=== PATIENT | male | born 1985 ===

== ENCOUNTER 2024-12-08 12:33 | Outpatient (AMB) | payer BC, SELFPAY ==
[2024-12-08 12:36] VITALS: BP 102/66; PULSE 107; RESP 14; TEMP 36.8; O2SAT 98; BMI 22.5
--- NOTE | 2024-12-08 12:36 | A.OFFPC_ITS ---
Vital Signs 12/08/24 12:36 12/08/24 13:03 Height 5 ft 3.78 in Weight 130 lb 4 oz BMI 22.5 BP 102/66 Blood Pressure Location Rt brachial Position Sitting Respiration 14 Pulse 107 H 80 Pulse Source Pulse Oximeter Auscultation Temp 98.3 F Temp Source Oral Pulse Oximetry (%) 98 Oxygen Delivery Method Room Air Intake Visit Reasons: Est. Care / Referral for Derm. Intake Note: New patient visit. 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 Allergies No Known Allergies Allergy (Verified 12/08/24 12:39) Medication List - Last Reconciled 12/08/24 by SHAMEKA Hunter No Known Home Meds Tobacco use date assessed: 05/23/21 Dental Screening Dental Screen Date: 12/08/24 Did you have a dental visit in the last 12 months?: Yes Did you have a dental problem in the last 6 months where you did not have access to dental care?: No Was dental information given to patient?: Patient has dentist HPI HPI Comments History of Present Illness Details 39 Year old male with a family history o f early PR, current smoker SurgHx: None FHx: Mom: Breast Cancer age 40, stroke. Father: PR age 50 SocHx: Smokes 1.5 ppd since 2007. EtOH infreq. 3x per month 1-2 per session. MJ daily. No other drugs. 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 - He has had moles checked historically, and prior biopsies have not returned positive for cancer. - His last mole removal occurred when he was without insurance coverage. Tobacco use disorder: - The patient is a current smoker and is not ready to quit at this time. - He is familiar with Chantix from a col league's experience but is concerned about potential side effects. - He declined a trial of Wellbutrin. Health Maintenance: - The patient is establishing care and w as previously seen by Dr. Woodard. records rec'd and reviewed. - He believes he had a tetanus shot appr oximately 10 years ago. - Screenings for anxiety and depression were positive, though the patient attributes these symptoms to normal life stressors and feels he is managing well. Past Medical History - Neoplasm of uncertain behavior of skin - History of numerous moles - No known drug allergies Past Surgical History - Patient denies any history of surgery. Family History - Mother: History of breast cancer and s troke. - Father: History of myocardial infarcti on. - Great uncle: History of cancer. - General: Reports that most of the fami ly history is heart-related. Social History - Tobacco Use: Patient is a current smok er and is not ready to quit. 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 - Family status: He has three children a nd a who is a [id number] mother. - Stressors: Notes stress related to his job and finances but feels he is coping adequately. Health Maintenance - Ordered baseline labs including a lipi d panel, metabolic panel, and PSA for prostate cancer screening. - Patient will have labs drawn today and will be notified of results via the patient portal or by mail. - Discussed the status of his tetanus im munization, which is likely due. - Recommended annual follow-up visits to maintain continuity of care. - Acknowledged positive screenings for a nxiety and depression but will monitor as the patient declined intervention. Review of Systems - Dermatologic: Reports a history of num erous moles. - HEENT: Denies problems with hearing. - Genitourinary: Reports normal urinatio n. - Gastrointestinal: Reports normal bowel movements. - All other systems reviewed and are neg ative. Physical Exam General: Well developed, well nourished, in no acute distress. Appears stated age. Head: Normocephalic, atraumatic. Eyes: Pupils are equal, round and reactive to light and accommodation. Conjunctivae are clear. Scleras nonicteric bilat. Vision grossly normal. Ears: TMs clear AU, EACS WNL Nose: Patent, without discharge. Neck: No carotid bruit bilat. Supple, no adenopathy or thyromegaly. No pain or tenderness noted. Breast: Edu on SBE Lungs: Clear to auscultation bilaterally. No rales, rhonchi or wheeze noted. Good air flow in all hernandez. Heart: Regular rate and rhythm. No murmurs, click, rubs or gallops are noted. Abdomen: Bowel sounds present in all quadrants. The abdomen is soft, nontender, with no masses or organomegaly noted. No hernias are noted. : Deferred. Reviewed KLARISSA & recommendations Pulses: Peripheral pulses are equal and palpable bilaterally. Strong pulses noted in ankles. Extremities: No clubbing, cyanosis nor edema is noted. Neurologic: Gait and station normal. Cranial Nerves 2-12 intact. Motor strength grossly symmetrical and intact. No sensory loss. Balance normal. Skin: No rashes, ulcers, or lesions noted. Turgor is good. Skin color is good. Hair and nails are without abnormalities. Psych: Normal eye contact, affect and mood appropriate, and normal interactions. Patient is alert and appropriate to context. S Results Pending Medical Decision Making The patient is a 39-year-old male establishing care, primarily requesting a dermatology referral for surveillance of numerous moles. Given his history, a referral to dermatology is appropriate for expert evaluation. In consideration of his significant family history of myocardial infarction, screening for hyperlipidemia is important. The patient, however, expressed reluctance to pursue pharmacological treatment for high cholesterol, though he agreed to prostate cancer screening. Baseline labs for general health assessment, including renal function, liver function, and a diabetes screen, have been ordered. His current tobacco use represents a significant modifiable risk factor for cardiovascular disease. Cessation options, including Wellbutrin, were discussed, but the patient is not ready to quit at this time; this will be revisited at future appointments. Although anxiety and depression screenings were positive, the patient attributes his symptoms to situational stressors and feels he is coping adequately, declining intervention for now. The plan is to establish a primary care relationship with annual follow-up visits for ongoing health maintenance and monitoring. Plan 1. Neoplasm Of Uncertain Behavior Of Ski n - A referral will be placed to [facility] for evaluation of numerous moles. - The dermatology office will contact e patient to schedule an appointment. 2. Tobacco Use Disorder - Discussed smoking cessation options, i ncluding Wellbutrin and counseling. - The patient is not ready to quit at th is time and declined pharmacotherapy. - Will continue to offer support for smo gaby cessation at future visits. Patient Instructions - A referral has been sent to [facility] ermatology in [place]. They should call you to set up an appointment. - Please stop at the front office java developer to have your blood drawn for lab tests today. - You will get an email to sign up for [employer] patient portal, which you can use to see your lab results and send messages. - If you do not sign up for the portal, we will send you a letter with your lab results. - Please let me know when you are ready to quit smoking, and we can discuss options to help you. - It is recommended to schedule a visit once a year to maintain your status as an active patient. - RTO 1 year CPE sooner prn Consent Patient was informed and verbally consented to the use of an ambient scribe for clinic note documentation during this visit. An additional 20 minutes was spent addressing the problem(s) noted at todays visit. This includes time spent before the visit reviewing the chart, time spent during the visit, and time spent after the visit on documentation reviewing laboratory results, diagnostic imaging, medications, performing a medically necessary evaluation, counseling on diagnoses, care coordination, ordering appropriate tests, ordering appropriate medications, review of tests performed by other providers, reporting test results with the patient, communication with other healthcare providers. [facility] Surgical History (Updated 12/08/24 @ 12:41 by Nisreen Valentin CMA) No pertinent past surgical history Family History (Updated 12/08/24 @ 12:40 by Nisreen Valentin CMA) Other Mental health disorder Social History (Updated 12/08/24 @ 12:38 by Kobi Wiley MA) Housing: House Alcohol intake: never Patient Tobacco Use Status: Current everyday Tobacco user Cigarette Packs Per Day: 2 Years Smoked: 17 e-Cigarette/Vaping Use: Never Used Second Hand Smoke Exposure: No service: Yes Current occupational status: employed Current occupation: Finance. Current occupational exposures/hazards: No Cognitive needs: No Hearing needs: No Vision needs: No Questionnaire PHQ-9 Over the last 2 weeks, how often have you been bothered by any of the following problems? 1. Little interest or pleasure in doing things: several days 2. Feeling down, depressed, or hopeless: several days 3. Trouble falling or staying asleep, or sleeping too much: several days 4. Feeling tired or having little energy: several days 5. Poor appetite or overeating: several days 6. Feeling bad about yourself - or that you are a failure or have let yourself or your family down: several days 7. Trouble concentrating on things, such as reading the newspaper or watching television: several days 8. Moving or speaking so slowly that other people could have noticed. Or the opposite - being so fidgety or restless that you have been moving around a lot more than usual: not at all 9. Thoughts that you would be better off or of hurting yourself in some way: not at all Total score: 7 Depression Screening Interpretation: Negative Depression Screening Done: Yes 74613 - PHQ-9 Billing: Yes Source: Developed by Drs. Eddi Araiza, Malissa Birch, Kenny Adams and colleagues, with an educational karely from [employer]. Thrive Questionnaire Date Thrive assessed: 12/01/24 I am a: Patient What is your living situation today?: I choose not to answer this question Within the past 12 months, did the food you bought not last and you didn't have the money to get more?: I choose not to answer this question Within the past 12 months, did you worry whether your food would run out before you got money to buy more?: I choose not to answer this question Do you have trouble paying for medicines?: I choose not to answer this question Do you have trouble getting transportation to medical appointments?: I choose not to answer this question Do you have trouble paying your heating and electricity bill?: I choose not to answer this question Do you have trouble taking care of your child, family member or friend?: I choose not to answer this question Do you have trouble with day-to-day activities such as bathing, preparing meals, shopping, managing finances, etc.?: I choose not to answer this question Are you currently unemployed and looking for a job?: I choose not to answer this question Are you interested in more education?: I choose not to answer this question Please select the resources that you would like help with: None Currently or been in a relationship where the following occur: No concerns reported THRIVE Score: 0 AUDIT C Alcohol Use Questionnaire (AUDIT-C) 1. How often do you have a drink containing alcohol?: Never 3. How often do you have six or more drinks on one occasion?: Never Total Score: 0 ANA LILIA-7 AMB Questionnaire ANA LILIA-7 Date ANA LILIA - 7 assessed: 12/08/24 Feeling nervous, anxious, or on edge: 1 = Several days Not being able to stop or control worryin = Several days Worrying too much about different things: 1 = Several days Trouble relaxin = Several days Being so restless that it is hard to sit still: 0 = Not at all Becoming easily annoyed or irritable: 1 = Several days Feeling afraid as if something awful might happen: 1 = Several days Total ANA LILIA-7 score (0-4 normal; 5-9 mild; 10-14 moderate; 15-21 severe): 6 Source: Developed by Drs. Eddi Araiza, Malissa Birch, Kenny Adams and colleagues, with an educational karely from [employer]. ANA LILIA-7 Assessment Billing ANA LILIA-7 Assessment Tool: ANA LILIA-7 Assessment 75255 Physical exam (Primary Care) Vital Signs: Last Vital Signs Temp 98.3 F 12/08/24 12:36 Pulse 107 H 12/08/24 12:36 Resp 14 12/08/24 12:36 BP 102/66 12/08/24 12:36 Pulse Ox 98 12/08/24 12:36 Oxygen Delivery Method Room Air 12/08/24 12:36 BMI result Body Mass Index 22.5 Tobacco/Smoking Status: Tobacco use Status Tobacco use date assessed 05/23/21 12/08/24 12:40 Patient Tobacco Use Status Current everyday Tobacco 12/08/24 12:40 e-Cigarette/Vaping Use Never Used 12/08/24 12:40 Are you ready to quit: No Tobacco cessation counseling provided: Yes Items discussed: Nicotine replacement, QuitWorks and Other Relapse Prevention: discussed the importance of a supportive environment, discussed extending NRT, discussed negative mood or depression after quitting, weight gain after smoking is common and discussed dietary, exercise and/or lifestyle changes Number of minutes spent counselin CPT code: 96661 - 4-10 Minutes PHQ-9: PHQ-9 Score PHQ-9: Total score 7 12/08/24 12:55 Depression Screening Interpretation: Negative Thrive Assessment: Date of Thrive Assessment Date Thrive assessed 12/01/24 12/08/24 12:40 Currently or been in a relationship where the following occur: No concerns reported Coding Level of Care Code New Pt Level 3 (97055) New Pt Prev Care 40-64y(41105) Diagnoses Encounter to establish care Z76.89 Skin mole D22.9 Laboratory exam ordered as part of routine general medical examination Z00.00 Family history of PR (myocardial infarction) Z82.49 Neoplasm of uncertain behavior of skin D48.5 Smoker F17.200 Encounter for general adult medical examination without abnormal findings Z00.00 Additional Codes PHQ-9 - 02975 - PHQ-9 Billing: Yes ([id number]) ANA LILIA-7 Assessment Billing - ANA LILIA-7 Assessment Tool: ANA LILIA-7 Assessment 19849 ([id number]) Vital Signs *Quality* - CPT code: 12989 - 4-10 Minutes ([id number]) Assessment & Plan Assessment & Plan (1) Encounter to establish care: Code(s): Z76.89 - Persons encountering health services in other specified circumstances Category: Medical (2) Skin mole: Code(s): D22.9 - Melanocytic nevi, unspecified Category: Medical (3) Laboratory exam ordered as part of routine general medical examination: Code(s): Z00.00 - Encounter for general adult medical examination without abnormal findings Category: Medical (4) Family history of PR (myocardial infarction): Code(s): Z82.49 - Family history of ischemic heart disease and other diseases of the circulatory system Category: Medical (5) Neoplasm of uncertain behavior of skin: Code(s): D48.5 - Neoplasm of uncertain behavior of skin Category: Medical (6) Smoker: Code(s): F17.200 - Nicotine dependence, unspecified, uncomplicated Category: Medical (7) Encounter for general adult medical examination without abnormal findings: Onset Date: ~12/08/24 Code(s): Z00.00 - Encounter for general adult medical examination without abnormal findings Category: Medical Plan . Orders: Orders Complete Blood Count no Diff Today Z00.00 - Encounter for general adult medical examination without abnormal findings Lipid Panel Today Z00.00 - Encounter for general adult medical examination without abnormal findings Microalbumin, Random (w Creat) Today Z00.00 - Encounter for general adult medical examination without abnormal findings Prostate Specific Antigen Scr Today Z00.00 - Encounter for general adult medical examination without abnormal findings Vitamin B12 and Folate Today Z00.00 - Encounter for general adult medical examination without abnormal findings Comprehensive Met. Panel Today Z00.00 - Encounter for general adult medical examination without abnormal findings TSH reflex Free T4 Today Z00.00 - Encounter for general adult medical examination without abnormal findings Vitamin D 25-OH Total Today Z00.00 - Encounter for general adult medical examination without abnormal findings Referrals Dermatology Referral D22.9 - Melanocytic nevi, unspecified Patient Instructions: Walk-In Care (Urgent Care): We Make it Easy Walk-in for urgent medical issues such as: ? Seasonal Allergies ? Insect Bites ? Cough ? Diarrhea ? Acute Asthma Attacks ? Back, Knee or Joint Pain ? Ear Infection ? Fever without a Rash ? Headaches ? Nausea ? Stryker Eye, Rash or Skin Irritation ? Sore Throat ? Sports Physicals ? Vomiting Most insurances are accepted. Patients do not need to be part of the [facility] to seek care at the walk-in clinic. Locations [address] [place] [address] Open Saturday through Saturday 8am-5pm *Hours may vary due to staffing availability. To confirm Walk-In Care hours please call. [facility] , [place] [address] ? [phone] [facility] Walk-In Care in [place] provides services to ages 18 and over. Open Saturday-Saturday: 7 a.m. to 5 p.m. and Saturday: 9 a.m. to 3 p.m.* *Hours may vary due to staffing availability. To confirm Walk-In Care hours in [place], please call [phone]. [address] [place] [address] ? [phone] [facility] Walk-In Care in [place] provides services to ages 12 and over. Open Saturday-Saturday: 8 a.m. to 5 p.m. Hours may vary due to staffing availability. To confirm Walk-In Care hours in [place], please call [phone]. LABORATORY SERVICES: [facility] ? Primary Location [address] [place] [address] Saturday through Saturday 6:00 AM ? 5:00 PM Saturday 7:00 AM ? 11:00 AM* [phone] The [facility] is centrally located near the front entrance of the Medical Center for easy outpatient access. Convenient parking is provided for outpatients. *Hours may vary due to staffing availability. To confirm Laboratory hours for any location, please call [phone]. Offsite Location For your convenience, we offer offsite laboratory draw stations at the following locations: [address] [facility], [place] ? [facility] [address] [facility], [address], [place] Saturday through Saturday 7:30 AM ? 1:00 PM* [phone] *Hours may vary due to staffing availability. To confirm Laboratory hours for any location, please call [phone]. [place] ? [facility] [address] [facility] Saturday through Saturday 6:00 AM ? 3:30 PM* Saturday 6:30 AM ? 3 PM* [phone] *Hours may vary due to staffing availability. To confirm Laboratory hours for any location, please call [phone]. [address] [facility] Saturday through Saturday 7:30 AM ? 4:00 PM* [phone] *Hours may vary due to staffing availability. To confirm Laboratory hours for any location, please call [phone] [place] [address] Saturday through 9:00 AM ? 4:00 PM* *Hours may vary due to staffing availability. To confirm Laboratory hours for any location, please call [phone]. Appointments are not necessary. Walk-ins are welcome. Like all the departments throughout the [facility], our Lab undergoes frequent reviews to ensure the quality and accuracy of test results, and our staff takes special pride in its status as a nationally accredited facility. Patient Portal: [facility] ONE PATIENT. ONE RECORD. BETTER CARE. [facility] has a fully integrated, cutting- edge mobile electronic health information system that has revolutionized the way we care for our patients and manage our organization. This system improves communication and coordination enabling us to provide safe, higher-quality care, and an overall positive experience for staff and patients. Our first priority, as always, is to deliver the highest quality care possible. The system is running in the background supporting that priority. This portal is for all [facility] services and practices. If you are experiencing any technical difficulties with enrolling or logging into the Patient Portal please complete the [facility] Patient Portal Technical Support Form. [facility] now offers a new secure on-line interactive tool for patients to review their health information ? ?Patient Portal. This interactive web portal will enable patients and their families to take an active role in their care by providing easy, secure access to their health information via the internet. The Patient Portal provides patients with instant access to their health information, including laboratory results, medications, allergies, demographic information, visit history, and more. In addition to managing their own care, parents and health care proxies with authorized consent will appreciate the ability to access the records of those individuals for whom they provide care. Please note: if you wish to gain access (Proxy) to another patient?s portal, you will be required to come to the Medical Records Department in person at [facility]. Both the patient giving proxy access and the proxy will need to provide photo identification and complete the appropriate authorization. The Patient Portal also allows track their appointments online. The [facility] Patient Portal also saves patients time by allowing them to submit updates to their demographic and contact information prior to their visits. Portal email notifications will also alert patients to any new activity on their portal, such as test results and new appointments. In order to initially enroll in the [facility] Patient Portal, you will need to enter some required information including the following: * your [facility] Medical Record number * your personal home email address * name * date of Please note: In order to enroll in the [facility] Patient Portal, we need to have your email address on file in your electronic medical record. ?The email address needs to be specific for one person (yourself) in order for your Portal enrollment to be successful. ?You can update your email address in person with our Registration staff when you are registering for a hospital visit. ?Otherwise, you will need to come to the Health Information Management (Medical Records) Department at [facility]. ?We are open from Saturday ? Saturday from 7:30 a.m. ? 4:30 p.m. ?You will be required to present a photo id. Once you have successfully enrolled in the Patient Portal, you will receive a one-time user id and password for the Portal, sent to your email address. ?This will allow you to log into the Patient Portal within 99 hrs and reset your own logon id and password, and define personal security questions. ?Once your permanent login and password have been set, you can log into the [facility] Patient Portal at any time via the blue button above or from the Portal Logon button on any page of the [facility] website. [facility] encourage all of our patients to enroll in Patient Portal as it presents a valuable opportunity for patients and their families to actively participate in their care and stay healthy Welcome to [facility]. ?We look forward to working with you. Health screenings for men You should visit your health care provider regularly, even if you feel healthy. The purpose of these visits is to: Screen for medical issues Assess your risk for future medical problems Encourage a healthy lifestyle Update vaccinations and other preventive care services Help you get to know your provider in case of an illness Information Even if you feel fine, you should still see your provider for regular checkups. These visits can help you avoid problems in the future. For example, the only way to find out if you have high blood pressure is to have it checked regularly. High blood sugar and high cholesterol level also may not have any symptoms in the early stages. Simple blood tests can check for these conditions. There are specific times when you should see your provider or receive specific health screenings. The [place] Preventive Services Task Force publishes a list of recommended screenings. Below are screening guidelines for men ages 40 to 64. BLOOD PRESSURE SCREENING Have your blood pressure checked at least once every year. Watch for blood pressure screenings in your area. Ask your provider if you can stop in to have your blood pressure checked. Ask your provider if you need your blood pressure checked more often if: You have diabetes, heart disease, kidney problems, or are overweight or have certain other health conditions You have a first-degree relative with high blood pressure You are Black Your blood pressure top number is from 120 to 129 mm Hg, or the bottom number is from 70 to 79 mm Hg If the top number is 130 mm Hg or greater or the bottom number is 80 mm Hg or greater, this is considered stage 1 hypertension. Schedule an appointment with your provider to learn how you can lower your blood pressure. Effects of age on blood pressure CHOLESTEROL SCREENING Cholesterol screening should begin at age 35 for men with no known risk factors for coronary heart disease. Repeat cholesterol screening should take place: Every 5 years for men with normal cholesterol levels More often if changes occur in lifestyle (including weight gain and diet) More often if you have diabetes, heart disease, kidney problems, or certain other conditions COLORECTAL CANCER SCREENING If you are under age 45, talk to your provider about getting screened. You may need to be screened if you have a strong family history of colon cancer or polyps. Screening may also be considered if you have risk factors such as a history of inflammatory bowel disease or polyps. If you are age 45 to 75, you should be screened for colorectal cancer. There are several screening tests available: A stool-based fecal occult blood (gFOBT) or fecal immunochemical test (FIT) every year A stool sDNA test every 1 to 3 years Flexible sigmoidoscopy every 5 years or every 10 years with stool testing FIT done every year CT colonography (virtual colonoscopy) every 5 years Colonoscopy every 10 years You may need a colonoscopy more often if you have risk factors for colorectal cancer, such as: Ulcerative colitis A personal or family history of colorectal cancer A history of growths in your colon called adenomatous polyps DENTAL EXAM Go to the dentist once or twice every year for an exam and cleaning. Your dentist will evaluate if you have a need for more frequent visits. DIABETES SCREENING All adults who do not have risk factors for diabetes should be screened starting at age 35 and repeated every 3 years. If you have other risk factors for diabetes, such as a first degree relative with diabetes, overweight or obesity, high blood pressure, prediabetes, or a history of heart disease, you may be tested more often. If you are overweight and have other risk factors, such as high blood pressure and are planning to become , screening is recommended. EYE EXAM Have an eye exam every 2 to 4 years ages 40 to 54 and every 1 to 3 years ages 55 to 64. Your provider may recommend more frequent eye exams if you have vision problems or glaucoma risk. Have an eye exam that includes an examination of your retina (back of your eye) at least every year if you have diabetes. IMMUNIZATIONS Commonly needed vaccines include: Flu shot: get one every year COVID-19 vaccine: ask your provider what is best for you Tetanus-diphtheria and acellular pertussis (Tdap) vaccine: have as one of your tetanus-diphtheria vaccines if you did not receive it as an adolescent Tetanus-diphtheria: have a booster (or Tdap) every 10 years Varicella vaccine: receive 2 doses if you never had chickenpox or the varicella vaccine and were born in 1980 or after Hepatitis B vaccine: receive 2, 3, or 4 doses, depending on your exact circumstances, if you did not receive these as a child or adolescent, until age 59 Shingles (herpes zoster) vaccine: at or after age 50 Ask your provider if you should receive other immunizations, especially if you have certain medical conditions, such as diabetes or are at increased risk for some diseases such as pneumonia. INFECTIOUS DISEASE SCREENING Screening for hepatitis C: all adults ages 18 to 79 should get a one-time test for hepatitis C. Screening for human immunodeficiency virus (HIV): all people ages 15 to 65 should get a one-time test for HIV. Depending on your lifestyle and medical history, you may need to be screened for infections such as syphilis, chlamydia, and other infections. LUNG CANCER SCREENING You should have an annual screening for lung cancer with low-dose computed tomography (LDCT) if: You are age 50 to 80 years AND You have a 20 pack-year smoking history AND You currently smoke or have quit within the past 15 years OSTEOPOROSIS SCREENING If you are age 50 to 64 and have risk factors for osteoporosis, you should discuss screening with your provider. Risk factors can include long-term steroid use, low body weight, smoking, heavy alcohol use, having a fracture after age 50, or a family history of hip fracture or osteoporosis. Osteoporosis PHYSICAL EXAM All adults should visit their provider from time to time, even if they are healthy. The purpose of these visits is to: Screen for diseases Assess risk of future medical problems Encourage a healthy lifestyle Update vaccinations and other preventive care services Maintain a relationship with a provider in case of an illness Your height, weight, and body mass index (BMI) should be checked at every exam. During your exam, your provider may ask you about: Depression and anxiety Diet and exercise Alcohol and tobacco use Safety, such as use of seat belts and smoke detectors Your medicines and risk for interactions PROSTATE CANCER SCREENING If you're 55 through 69 years old, before having the test, talk to your provider about the pros and cons of having a PSA test. Ask about: Whether screening decreases your chance of dying from prostate cancer. Whether there is any harm from prostate cancer screening, such as side effects from testing or overtreatment of cancer when discovered. Whether you have a higher risk of prostate cancer than others. If you are age 55 or younger, screening is not generally recommended. You should talk with your provider about if you have a higher risk for prostate cancer. Risk factors include: Having a family history of prostate cancer (especially a brother or father) Being If you choose to be tested, the PSA blood test is repeated over time (yearly or less often), though the best frequency is not known. Prostate examinations are no longer routinely done on men with no symptoms. Prostate cancer SKIN EXAM Your provider may check your skin for signs of skin cancer, especially if you're at high risk. People at high risk include those who have had skin cancer before, have close relatives with skin cancer, or have a weakened immune system. TESTICULAR EXAM The US Preventive Services Task Force (USPSTF) now recommends against performing testicular self-exams. Doing testicular self-exams has been shown to have little to no benefit.
--- NOTE | 2024-12-08 12:36 | MHC.PC.OV ---
Vital Signs 12/08/24 12:36 Height 5 ft 3.78 in Weight 130 lb 4 oz BMI 22.5 BP 102/66 Blood Pressure Location Rt brachial Position Sitting Respiration 14 Pulse 107 H Pulse Source Pulse Oximeter Temp 98.3 F Temp Source Oral Pulse Oximetry (%) 98 Oxygen Delivery Method Room Air Intake Visit Reasons: Est. Care / Referral for Derm. Intake Note: New patient to establish care and referral for dermatology. Access Registrar Required: No Allergies No Known Allergies Allergy (Verified 12/08/24 12:39) Medication List - Last Reconciled 12/08/24 by MILADIS HunterP- No Known Home Meds Tobacco use date assessed: 12/08/24 Dental Screening Dental Screen Date: 12/08/24 Did you have a dental visit in the last 12 months?: Yes Did you have a dental problem in the last 6 months where you did not have access to dental care?: No Was dental information given to patient?: Patient has dentist HPI HPI Comments History of Present Illness Details 39 Year old male with a family history of early ND, current smoker SurgHx: None FHx: Mom: Breast Cancer age 40, Stroke Father: ND age 50 SocHx: Smokes 1.5 ppd since 2007. EtOH infreq. 3x per month 1-2 per session. MJ daily. No other drugs. Health Maintenance: Colon PSA Tdap Specialists: Derm [facility] Surgical History (Updated 12/08/24 @ 12:41 by Nisreen Valentin CMA) No pertinent past surgical history Family History (Updated 12/08/24 @ 12:40 by Nisreen Valentin CMA) Other Mental health disorder Social History (Updated 12/08/24 @ 12:38 by Kobi Wiley MA) Housing: House Alcohol intake: never Patient Tobacco Use Status: Current everyday Tobacco user Cigarette Packs Per Day: 2 Years Smoked: 17 Packs Per Year: 34 e-Cigarette/Vaping Use: Never Used Second Hand Smoke Exposure: No service: Yes Current occupational status: employed Current occupation: Finance. Current occupational exposures/hazards: No Cognitive needs: No Hearing needs: No Vision needs: No Questionnaire PHQ-9 Over the last 2 weeks, how often have you been bothered by any of the following problems? 1. Little interest or pleasure in doing things: several days 2. Feeling down, depressed, or hopeless: several days 3. Trouble falling or staying asleep, or sleeping too much: several days 4. Feeling tired or having little energy: several days 5. Poor appetite or overeating: several days 6. Feeling bad about yourself - or that you are a failure or have let yourself or your family down: several days 7. Trouble concentrating on things, such as reading the newspaper or watching television: several days 8. Moving or speaking so slowly that other people could have noticed. Or the opposite - being so fidgety or restless that you have been moving around a lot more than usual: not at all 9. Thoughts that you would be better off or of hurting yourself in some way: not at all Total score: 7 Depression Screening Interpretation: Positive Depression Screening Follow-up: Existing condition and In treatment Depression Screening Done: Yes 21076 - PHQ-9 Billing: Yes Source: Developed by Drs. Eddi Araiza, Malissa Birch, Kenny Adams and colleagues, with an educational karely from [employer]. Thrive Questionnaire Date Thrive assessed: 12/08/24 I am a: Patient What is your living situation today?: I choose not to answer this question Within the past 12 months, did the food you bought not last and you didn't have the money to get more?: I choose not to answer this question Within the past 12 months, did you worry whether your food would run out before you got money to buy more?: I choose not to answer this question Do you have trouble paying for medicines?: I choose not to answer this question Do you have trouble getting transportation to medical appointments?: I choose not to answer this question Do you have trouble paying your heating and electricity bill?: I choose not to answer this question Do you have trouble taking care of your child, family member or friend?: I choose not to answer this question Do you have trouble with day-to-day activities such as bathing, preparing meals, shopping, managing finances, etc.?: I choose not to answer this question Are you currently unemployed and looking for a job?: I choose not to answer this question Are you interested in more education?: I choose not to answer this question Please select the resources that you would like help with: None Currently or been in a relationship where the following occur: No concerns reported THRIVE Score: 0 AUDIT C Alcohol Use Questionnaire (AUDIT-C) 1. How often do you have a drink containing alcohol?: Never 3. How often do you have six or more drinks on one occasion?: Never Total Score: 0 Score Reviewed/Action Taken: Yes ANA LILIA-7 AMB Questionnaire ANA LILIA-7 Date ANA LILIA - 7 assessed: 12/08/24 Feeling nervous, anxious, or on edge: 1 = Several days Not being able to stop or control worryin = Several days Worrying too much about different things: 1 = Several days Trouble relaxin = Several days Being so restless that it is hard to sit still: 0 = Not at all Becoming easily annoyed or irritable: 1 = Several days Feeling afraid as if something awful might happen: 1 = Several days Total ANA LILIA-7 score (0-4 normal; 5-9 mild; 10-14 moderate; 15-21 severe): 6 Source: Developed by Drs. Eddi Araiza, Malissa Birch, Kenny Adams and colleagues, with an educational karely from [employer]. ANA LILIA-7 Assessment Billing ANA LILIA-7 Assessment Tool: ANA LILIA-7 Assessment 66676 Physical exam (Primary Care) Vital Signs: Last Vital Signs Temp 98.3 F 12/08/24 12:36 Pulse 107 H 12/08/24 12:36 Resp 14 12/08/24 12:36 BP 102/66 12/08/24 12:36 Pulse Ox 98 12/08/24 12:36 Oxygen Delivery Method Room Air 12/08/24 12:36 BMI result Body Mass Index 22.5 Tobacco/Smoking Status: Tobacco use Status Tobacco use date assessed 12/08/24 12/08/24 12:42 Patient Tobacco Use Status Current everyday Tobacco 12/08/24 12:40 e-Cigarette/Vaping Use Never Used 12/08/24 12:40 Are you ready to quit: No Tobacco cessation counseling provided: Yes Items discussed: Nicotine replacement, QuitWorks and Other Relapse Prevention: discussed the importance of a supportive environment, discussed extending NRT, discussed negative mood or depression after quitting, weight gain after smoking is common and discussed dietary, exercise and/or lifestyle changes Number of minutes spent counselin CPT code: 31759 - 4-10 Minutes PHQ-9: PHQ-9 Score PHQ-9: Total score 7 12/08/24 12:42 Depression Screening Interpretation: Positive Depression Screening Follow-up: Existing condition and In treatment Thrive Assessment: Date of Thrive Assessment Date Thrive assessed 12/08/24 12/08/24 12:42 Currently or been in a relationship where the following occur: No concerns reported Coding Diagnoses Encounter to establish care Z76.89 Smoker F17.200 Laboratory exam ordered as part of routine general medical examination Z00.00 Numerous moles D22.9 Family history of ND (myocardial infarction) Z82.49 Skin mole D22.9 Additional Codes ANA LILIA-7 Assessment Billing - ANA LILIA-7 Assessment Tool: ANA LILIA-7 Assessment 20198 ([id number]) PHQ-9 - 05166 - PHQ-9 Billing: Yes ([id number]) Vital Signs *Quality* - CPT code: 28135 - 4-10 Minutes ([id number]) Assessment & Plan Assessment & Plan (1) Encounter to establish care: Code(s): Z76.89 - Persons encountering health services in other specified circumstances (2) Smoker: Code(s): F17.200 - Nicotine dependence, unspecified, uncomplicated Category: Social Hx (3) Laboratory exam ordered as part of routine general medical examination: Code(s): Z00.00 - Encounter for general adult medical examination without abnormal findings Category: Medical (4) Numerous moles: Code(s): D22.9 - Melanocytic nevi, unspecified Category: Medical (5) Family history of ND (myocardial infarction): Code(s): Z82.49 - Family history of ischemic heart disease and other diseases of the circulatory system Category: Medical (6) Skin mole: Code(s): D22.9 - Melanocytic nevi, unspecified Category: Medical Orders: Referrals Dermatology Referral D22.9 - Melanocytic nevi, unspecified Patient Instructions: Walk-In Care (Urgent Care): We Make it Easy Walk-in for urgent medical issues such as: ? Seasonal Allergies ? Insect Bites ? Cough ? Diarrhea ? Acute Asthma Attacks ? Back, Knee or Joint Pain ? Ear Infection ? Fever without a Rash ? Headaches ? Nausea ? [place] Eye, Rash or Skin Irritation ? Sore Throat ? Sports Physicals ? Vomiting Most insurances are accepted. Patients do not need to be part of the [facility] to seek care at the walk-in clinic. Locations [address] [place] [address] Open Saturday through Saturday 8am-5pm *Hours may vary due to staffing availability. To confirm Walk-In Care hours please call. [address] [facility] , [place] [address] ? [phone] [facility] Walk-In Care in [place] provides services to ages 18 and over. Open Saturday-Saturday: 7 a.m. to 5 p.m. and Saturday: 9 a.m. to 3 p.m.* *Hours may vary due to staffing availability. To confirm Walk-In Care hours in [place], please call [phone]. [address] [place] [address] ? [phone] [facility] Walk-In Care in [place] provides services to ages 12 and over. Open Saturday-Saturday: 8 a.m. to 5 p.m. Hours may vary due to staffing availability. To confirm Walk-In Care hours in [place], please call [phone]. LABORATORY SERVICES: [facility] Lab ? Primary Location [address] [place] [address] Saturday through Saturday 6:00 AM ? 5:00 PM Saturday 7:00 AM ? 11:00 AM* [phone] The [facility] Lab is centrally located near the front entrance of the [facility] for easy outpatient access. Convenient parking is provided for outpatients. *Hours may vary due to staffing availability. To confirm Laboratory hours for any location, please call [phone]. Offsite Location For your convenience, we offer offsite laboratory draw stations at the following locations: [address] [place] [address] ? [address], [address] [place] [address] Saturday through Saturday 7:30 AM ? 1:00 PM* [phone] *Hours may vary due to staffing availability. To confirm Laboratory hours for any location, please call [phone]. [place] ? [address] Saturday through Saturday 6:00 AM ? 3:30 PM* Saturday 6:30 AM ? 3 PM* [phone] *Hours may vary due to staffing availability. To confirm Laboratory hours for any location, please call [phone]. [address] [facility] Saturday through Saturday 7:30 AM ? 4:00 PM* [phone] *Hours may vary due to staffing availability. To confirm Laboratory hours for any location, please call [phone]. [address] [facility] Saturday through 9:00 AM ? 4:00 PM* *Hours may vary due to staffing availability. To confirm Laboratory hours for any location, please call [phone]. Appointments are not necessary. Walk-ins are welcome. Like all the departments throughout the [facility], our Lab undergoes frequent reviews to ensure the quality and accuracy of test results, and our staff takes special pride in its status as a nationally accredited facility. Patient Portal: [facility] ONE PATIENT. ONE RECORD. BETTER CARE. [facility] has a fully integrated, cutting-edge mobile electronic health information system that has revolutionized the way we care for our patients and manage our organization. This system improves communication and coordination enabling us to provide safe, higher-quality care, and an overall positive experience for staff and patients. Our first priority, as always, is to deliver the highest quality care possible. The system is running in the background supporting that priority. This portal is for all [facility] services and practices. If you are experiencing any technical difficulties with enrolling or logging into the Patient Portal please complete the [facility] Patient Portal Technical Support Form. [facility] now offers a new secure on-line interactive tool for patients to review their health information ? ?Patient Portal. This interactive web portal will enable patients and their families to take an active role in their care by providing easy, secure access to their health information via the internet. The Patient Portal provides patients with instant access to their health information, including laboratory results, medications, allergies, demographic information, visit history, and more. In addition to managing their own care, parents and health care proxies with authorized consent will appreciate the ability to access the records of those individuals for whom they provide care. Please note: if you wish to gain access (Proxy) to another patient?s portal, you will be required to come to the Medical Records Department in person at [facility]. Both the patient giving proxy access and the proxy will need to provide photo identification and complete the appropriate authorization. The Patient Portal also allows track their appointments online. The [facility] Patient Portal also saves patients time by allowing them to submit updates to their demographic and contact information prior to their visits. Portal email notifications will also alert patients to any new activity on their portal, such as test results and new appointments. In order to initially enroll in the [facility] Patient Portal, you will need to enter some required information including the following: your [facility] Medical Record number your personal home email address name date of Please note: In order to enroll in the [facility] Patient Portal, we need to have your email address on file in your electronic medical record. ?The email address needs to be specific for one person (yourself) in order for your Portal enrollment to be successful. ?You can update your email address in person with our Registration staff when you are registering for a hospital visit. ?Otherwise, you will need to come to the Health Information Management (Medical Records) Department at [facility]. ?We are open from Saturday ? Saturday from 7:30 a.m. ? 4:30 p.m. ?You will be required to present a photo id. Once you have successfully enrolled in the Patient Portal, you will receive a one-time user id and password for the Portal, sent to your email address. ?This will allow you to log into the Patient Portal within 99 hrs and reset your own logon id and password, and define personal security questions. ?Once your permanent login and password have been set, you can log into the [facility] Patient Portal at any time via the blue button above or from the Portal Logon button on any page of the [facility] website. [facility] and [facility] encourage all of our patients to enroll in Patient Portal as it presents a valuable opportunity for patients and their families to actively participate in their care and stay healthy Welcome to [facility]. ?We look forward to working with you.
[2024-12-08 13:03] VITALS: PULSE 80
== END 2024-12-08 13:02 | disposition home or self-care (01) ==
LOC: HO.HMCFM 12:34
PROVIDERS: PCP Nurse Practitioner Family; Visit Provider Nurse Practitioner Family
DX: Z00.00 Encounter for general adult medical examination without abnormal findings (principal); D22.9 Melanocytic nevi, unspecified; D48.5 Neoplasm of uncertain behavior of skin; Z82.49 Family history of ischemic heart disease and other diseases of the circulatory system; F17.200 Nicotine dependence, unspecified, uncomplicated

== ENCOUNTER 2024-12-08 12:33 | Outpatient (REF) | payer BC, SELFPAY ==
[2024-12-08 18:38] LABS: Alanine Aminotransferase 25 U/L (0-40); Albumin Level 4.7 g/dL (3.5-5.0); Alkaline Phosphatase 76 U/L (39-117); Anion Gap 11 (12-20); Aspartate Amino Transferase 29 U/L (5-37); Blood Urea Nitrogen 7 mg/dL (9-16); Calcium 9.1 mg/dL (8.4-10.2); Carbon Dioxide 29 mmol/L (22-29); Chloride 106 mmol/L (96-108); Cholesterol 270 mg/dL (<200); Estimated Glomerular Filt Rate > 60; HDL Cholesterol 37 mg/dL (>40); Potassium 4.0 mmol/L (3.3-5.1); Sodium 142 mmol/L (135-145); Total Protein 7.2 g/dL (6.5-8.0); Triglycerides 108 mg/dL (<150)
[2024-12-08 18:58] LABS: Folate 6.2 ng/mL (> or = 4.0); Vitamin B12 394 pg/mL (200-900)
[2024-12-08 19:02] LABS: Hematocrit 47.9 % (42.0-52.0); Hemoglobin 16.3 g/dl (14.0-18.0); Mean Corpuscular HGB Conc 34.0 g/dl (31.0-36.0); Mean Corpuscular Hemoglobin 31.0 pg (27.0-33.0); Mean Corpuscular Volume 91.1 fL (80.0-98.0); NRBC Abs Auto 0.000 X10*3/uL (0.0-0.012); NRBC Pct Auto 0.0 /100WBC (0.0-0.2); Platelet Count 231 X10*3/uL (160-400); Red Blood Count 5.26 X10*6/uL (4.60-5.80); White Blood Count 9.3 X10*3/uL (4.8-10.8)
== END 2024-12-08 12:34 | disposition home or self-care (01) ==
LOC: HO.WFDLDS 12:33
PROVIDERS: PCP Nurse Practitioner Family; Visit Provider Nurse Practitioner Family
DX: Z00.00 Encounter for general adult medical examination without abnormal findings (principal); D48.5 Neoplasm of uncertain behavior of skin; F17.210 Nicotine dependence, cigarettes, uncomplicated; D22.9 Melanocytic nevi, unspecified; Z12.5 Encounter for screening for malignant neoplasm of prostate; Z76.89 Persons encountering health services in other specified circumstances; Z82.49 Family history of ischemic heart disease and other diseases of the circulatory system
CPT/HCPCS: 36415; 80053; 80061; 82306; 82570; 82607; 82746; 84153; 84443; 85027; 96127